=== PATIENT | male | born 2000 | race African-American/Black ===

== ENCOUNTER 2023-02-22 12:26 | Emergency (ER) | payer OTHER ==
[2023-02-22 12:48] VITALS: BP 144/79; O2SAT 99
--- NOTE | 2023-02-22 14:12 | ED Physician Documentation ---
PD HPI SKIN - Stated complaint Stated Complaint: RT EYE SWELLING - Chief complaint Chief Complaint: Wound - History obtained from History obtained from: Patient - History of Present Illness Timing - onset: How many days ago (6) Timing - duration: Days (6) Timing - details: Gradual onset, Still present Location: Face (onset of sore, swelling and drainage from right nostril edge. Has had this at times in the past and will drain then improve. This time it drained some but has increased swelling and redness to right side of nose, right cheek and to lower eyelid. No eye pain itself.) Quality / character: Painful, Swelling, Draining Associated symptoms: No: Fever, Myalgias Similar symptoms before: No diagnosis (has had this as a nostril small abscess few times tih self-drainage then improved in the past. No Dx of it.) Review of Systems Constitutional: denies: Fever, Chills Eyes: denies: Loss of vision, Photophobia PD PAST MEDICAL HISTORY - Past Medical History Past Medical History: No Endocrine/Autoimmune: None - Past Surgical History Past Surgical History: No - Present Medications Home Medications: Ambulatory Orders Medication Instructions Recorded Confirmed Doxycycline Hyclate 100 mg PO BID 7 Days #14 cap 02/22/23 HYDROcod/ACETAM 5/325 [Douglass 5/325] 1 ea PO Q6H PRN #8 tablet 02/22/23 Mupirocin 2% Oint [Bactroban 2% 1 applic TOP TID #15 gm 02/22/23 Oint] Naproxen 500 mg PO BID #15 tab 02/22/23 - Allergies Allergies/Adverse Reactions: Allergies Allergy/AdvReac Type Severity Reaction Status Date / Time No Known Drug Allergies Allergy Verified 02/22/23 12:40 - Social History Does the pt smoke?: No Smoking Status: Never smoker PD ED PE NORMAL - Vitals Vital signs reviewed: Yes - General General: Alert and oriented X 3, No acute distress, Well developed/nourished - HEENT HEENT: PERRL, EOMI (without pain behind eye. Has some cheek pain wtih eyelid movement. ), Other (right nostril with swelling and tenderness, mild drainage which improved a few drops with small incision. culture obtained. Presumed staph. There is warmth, redness and swelling to right cheek and lower part of lower lid. ) - Neck Neck: Supple, no meningeal sign, No adenopathy - Cardiac Cardiac: No murmur - Respiratory Respiratory: Clear bilaterally Results - Vitals Vitals: Vital Signs - 24 hr 02/22/23 12:38 Temperature 37.4 C Heart Rate 83 Respiratory 16 Rate Blood Pressure 144/79 H O2 Saturation 99 Oxygen O2 Source Room air - Labs Labs: Microbiology 02/22/23 14:35 Wound Culture - Preliminary Face - Nose Procedures - Abscess I&D (location) right nose Preparation: LET Incision: Incised with scalpel, Purulent drainage, Culture obtained Other: Pt tolerated well, Antibiotic prescribed PD Medical Decision Making - ED course Complexity details: considered differential (presume staph infection at nostril with now cellulitis. ), d/w patient Departure - Departure Disposition: 01 Home, Self Care Clinical Impression: Facial abscess Condition: Stable Record reviewed to determine appropriate education?: Yes Instructions: ED Abscess IandD Follow-Up: LAUREN Romero [Provider Group] Prescriptions: Mupirocin 2% Oint [Bactroban 2% Oint] 1 applic TOP TID #15 gm Doxycycline Hyclate 100 mg PO BID 7 Days #14 cap Naproxen 500 mg PO BID #15 tab HYDROcod/ACETAM 5/325 [Douglass 5/325] 1 ea PO Q6H PRN #8 tablet PRN Reason: Pain Comments: Continue with what you had been doing of warm compresses and gently massage and around the area to see if more drainage will come out. We did get a bit of purulence out with the incision to the area and it has left enough of a small hole that the purulent should come out more easily at this point. For the skin infection otherwise, I would suggest doxycycline antibiotic twice daily for the next week. Also topical mupirocin antibiotic not only on the outside sore of the nose but also gently in the nostril on both sides with the Q-tip. I would use the mupirocin 2 or 3 times daily initially. Once the infection is cleared, I would continue with the small amount in the nostrils on both sides with a Q-tip for a month. This will try to reduce recurrence. We did do a culture of the outflow from the abscess. That should result in a couple of days and we will call you if we need to amend the antibiotic choice based on that. Use naproxen anti-inflammatory twice daily for the next week. Add Tylenol every 4-6 hours as needed for pain. Add hydrocodone if needed for worse pain. Off work today and tomorrow due to the symptoms and also the potential side effects of sedation from the medicine. Follow-up with your primary care if not improving well over the next 2 to 3 days and resolved by 4 to 5 days. I sent your prescriptions to [facility] pharmacy in [place]. I am prescribing a short course of narcotic pain medication for you. These are potentially dangerous and addictive medications that should be used carefully. These medications may constipate you. Take an [id number] stool softener such as docusate twice daily with plenty of water while taking these medications. If you go 24 hours without a bowel movement, take [id number] MiraLAX, per package instructions. Do not drink or drive while taking these medications. If you received narcotic or sedating medications while in the emergency department do not drive for 24 hours. Store this medication in a safe, secure place and out of reach of children. It is a violation of federal law to give or sell this medication to another person or to use in a manner other than prescribed. The ED will not refill narcotic prescriptions, including prescriptions lost or stolen. You can dispose of unwanted medications at the [facility]'s office or at several pharmacies such as [facility]. Forms: PCP List, Activity restrictions Discharge Date/Time: 02/22/23 15:27
[2023-02-22] MEDS ORDERED: HYDROcod/ACETAM 5/325 MG TABLET PO STA (14:23)
[2023-02-22] MEDS ORDERED: LIDOCAINE-EPINEPH-TETRACAINE 3 ML SYRINGE TOP STA (14:23)
[2023-02-22] MEDS ORDERED: IBUPROFEN 600 MG TABLET PO STA (14:24)
[2023-02-22] MEDS ORDERED: DOXYCYCLINE 100 MG TABLET PO STA (14:24)
== END 2023-02-22 15:27 | disposition home or self-care (01) ==
LOC: ED 12:26
DX: L02.01 Cutaneous abscess of face (principal)
CPT/HCPCS: 30000; 87070; 87181; 87205; 99283; A9270